=== PATIENT | female | born 1960 | race Caucasian/White ===

== ENCOUNTER 2019-04-12 08:33 | Outpatient (RCR) | payer MEDICAID | END 2019-05-13 13:27 | disposition home or self-care (01) | PROVIDERS: ATTEND Nurse Practitioner Community Health | DX: M54.2 Cervicalgia (principal) ==

== ENCOUNTER 2019-10-01 10:41 | Outpatient (RCR) | payer MEDICAID | END 2019-12-30 | disposition home or self-care (01) | PROVIDERS: ATTEND Nurse Practitioner Community Health | DX: M62.830 Muscle spasm of back (principal); E11.9 Type 2 diabetes mellitus without complications; F43.10 Post-traumatic stress disorder, unspecified; E07.9 Disorder of thyroid, unspecified ==

== ENCOUNTER → 2020-11-24 | Outpatient (CLI) | payer MEDICAID | LOC: RAD 11:15 | PROVIDERS: ATTEND Pediatrics | DX: Z12.31 Encounter for screening mammogram for malignant neoplasm of breast (principal) | CPT/HCPCS: 77063; 77067 ==

== ENCOUNTER 2022-12-13 14:56 | Outpatient (RCR) | payer MEDICAID | END 2022-12-14 | disposition home or self-care (01) | PROVIDERS: ATTEND Pediatrics | DX: G89.29 Other chronic pain (principal); I10 Essential (primary) hypertension; E11.9 Type 2 diabetes mellitus without complications; M54.50 Low back pain, unspecified ==

== ENCOUNTER 2022-12-15 13:08 | Outpatient (RCR) | payer MEDICAID | END 2023-01-11 10:31 | disposition home or self-care (01) | PROVIDERS: ATTEND Pediatrics | DX: G89.29 Other chronic pain (principal); I10 Essential (primary) hypertension; E11.9 Type 2 diabetes mellitus without complications ==